=== PATIENT | male | born 1985 | race Caucasian/White ===

== ENCOUNTER → 2019-03-02 | Outpatient (CLI) | payer OTHER | END | disposition home or self-care (01) | LOC: US 16:00 | DX: R39.198 Other difficulties with micturition (principal); M54.5 Low back pain ==

== ENCOUNTER 2020-11-12 15:09 | Emergency (ER) | payer OTHER ==
[~2020-11-12] VITALS: Ht 170.1 cm; Wt 82.6 kg
== END 2020-11-12 18:15 | disposition home or self-care (01) ==
LOC: ED 15:09
DX: S60.011A Contusion of right thumb without damage to nail, initial encounter (principal); W23.0XXA Caught, crushed, jammed, or pinched between moving objects, initial encounter; Y93.89 Activity, other specified; Y92.810 Car as the place of occurrence of the external cause; Y99.0 Civilian activity done for income or pay

== ENCOUNTER → 2020-12-30 | Outpatient (CLI) | payer BC | END | disposition home or self-care (01) | LOC: RAD 12:27 | PROVIDERS: ATTEND Internal Medicine | DX: R05 Cough (principal) ==